=== PATIENT | female | born 1965 | race Caucasian/White ===

== ENCOUNTER 2020-03-18 07:00 | Day surgery (SDC) | payer OTHER ==
[~2020-03-18 07:00] MED LIST: Lidocaine 1%/Sod Bicarbonate in NS 8.4% 1 ML Syringe IDERM PRN; Sodium Chloride 0.9% 10 ML Syringe FLUSH PRN
[2020-03-18] MEDS ORDERED: Sodium Chloride 0.9% 50 ML SDV ONE (07:07)
[2020-03-18] MEDS ORDERED: Lidocaine 1% with EPINEPHrine 1:100,000 20 ML MDV ONE (07:07)
[2020-03-18] MEDS ORDERED: Bupivacaine 0.5% 30 ML SDV ONE (07:07)
[2020-03-18] MEDS ORDERED: HYDROmorphone 0.5 MG/0.5 ML Syringe ONE (07:15)
[2020-03-18] MEDS ORDERED: Lactated Ringers 1,000 ML ONE (07:15)
[2020-03-18] MEDS ORDERED: Rocuronium 50 MG/5 ML Vial ONE (07:15)
[2020-03-18] MEDS ORDERED: Ondansetron 4 MG/2 ML SDV ONE (07:15)
[2020-03-18] MEDS ORDERED: Propofol 200 MG/20 ML SDV ONE (07:15)
[2020-03-18] MEDS ORDERED: Midazolam 1 MG/ML 2 ML SDV ONE (07:15)
[2020-03-18] MEDS ORDERED: Dexamethasone 4 MG/ML 5 ML MDV ONE (07:16)
[2020-03-18] MEDS ORDERED: fentaNYL 250 MCG/5 ML SDV ONE (07:16)
[2020-03-18] MEDS ORDERED: Lidocaine 1% 4 ML ONE (07:16)
[2020-03-18] MEDS: Lactated Ringers 1,000 ML IV SCH ×2 (07:25→15:10)
--- NOTE | 2020-03-18 07:33 | PCM.PREANE ---
Preanesthetic Assessment - Anesthesia/Transfusion/Family Hx Anesthesia History: Prior Anesthesia Without Reaction Family History of Anesthesia Reaction: No Transfusion History: No Prior Transfusion(s) Intubation History: Unknown - Review of Systems General: No Symptoms Pulmonary: No Symptoms Cardiovascular: No Symptoms Gastrointestinal: No Symptoms Neurological: No Symptoms Other: Reports: None - Physical Assessment NPO Status Date: 03/17/20 NPO Status Time: 21:00 ASA Class: 1 Mental Status: Alert & Oriented x3 Airway Class: Mallampati = 2 Dentition: Reports: Normal Dentition Thyro-Mental Finger Breadths: 3 Mouth Opening Finger Breadths: 3 ROM/Head Extension: Full Lungs: Clear to Auscultation, Normal Respiratory Effort Cardiovascular: Regular Rate, Regular Rhythm - Lab Values: Laboratory Last Values WBC 4.57 K/mm3 (3.98-10.04) 03/17/20 07:43 RBC 4.92 M/mm3 (3.98-5.22) 03/17/20 07:43 Hgb 14.9 gm/dl (11.2-15.7) 03/17/20 07:43 Hct 46.1 % (34.1-44.9) H 03/17/20 07:43 MCV 93.7 fl (79.4-94.8) 03/17/20 07:43 MCH 30.3 pg (25.6-32.2) 03/17/20 07:43 MCHC 32.3 g/dl (32.2-35.5) 03/17/20 07:43 RDW Std Deviation 43.1 fL (36.4-46.3) 03/17/20 07:43 Plt Count 293 K/mm3 (182-369) 03/17/20 07:43 MPV 10.7 fl (9.4-12.3) 03/17/20 07:43 Neut % (Auto) 56.5 % (34.0-71.1) 03/17/20 07:43 Lymph % (Auto) 28.4 % (19.3-51.7) 03/17/20 07:43 Citrus % (Auto) 12.5 % (4.7-12.5) 03/17/20 07:43 Eos % (Auto) 2.0 (0.7-5.8) 03/17/20 07:43 Baso % (Auto) 0.4 % (0.1-1.2) 03/17/20 07:43 Neut # (Auto) 2.58 K/mm3 (1.56-6.13) 03/17/20 07:43 Lymph # (Auto) 1.30 K/mm3 (1.18-3.74) 03/17/20 07:43 Citrus # (Auto) 0.57 K/mm3 (0.24-0.36) H 03/17/20 07:43 Eos # (Auto) 0.09 K/mm3 (0.04-0.36) 03/17/20 07:43 Baso # (Auto) 0.02 K/mm3 (0.01-0.08) 03/17/20 07:43 Creatinine 0.8 mg/dL (0.55-1.02) 03/17/20 07:43 Est Cr Clr Drug Dosing TNP 03/17/20 07:43 Estimated GFR (MDRD) > 60 mL/min (>60) 03/17/20 07:43 Urine Color Light yellow (Yellow) 03/17/20 07:43 Urine Appearance Clear (Clear) 03/17/20 07:43 Urine pH 7.0 (5.0-8.0) 03/17/20 07:43 Ur Specific [place] 1.015 (1.005-1.030) 03/17/20 07:43 Urine Protein Negative (Negative) 03/17/20 07:43 Urine Glucose (UA) Negative (Negative) 03/17/20 07:43 Urine Ketones Negative (Negative) 03/17/20 07:43 Urine Occult Blood Negative (Negative) 03/17/20 07:43 Urine Nitrite Negative (Negative) 03/17/20 07:43 Urine Bilirubin Negative (Negative) 03/17/20 07:43 Urine Urobilinogen 0.2 (0.2-1.0) 03/17/20 07:43 Ur Leukocyte Esterase Negative (Negative) 03/17/20 07:43 Urine RBC Not seen /hpf (0-5) 03/17/20 07:43 Urine WBC 0-5 /hpf (0-5) 03/17/20 07:43 Ur Squamous Epith Cells 0-5 /hpf (0-5) 03/17/20 07:43 Urine Bacteria Rare /hpf (FEW) 03/17/20 07:43 Urine Mucus Not seen /hpf (FEW) 03/17/20 07:43 SARS-CoV-2 (PCR) Not detected (NOT DETECT) 03/15/20 09:30 Blood Type B POSITIVE 03/17/20 07:43 Gel Antibody Screen Negative 03/17/20 07:43 - Allergies Allergies/Adverse Reactions: Allergies Allergy/AdvReac Type Severity Reaction Status Date / Time No Known Allergies Allergy Verified 03/17/20 14:39 - Blood Blood Available: No Product(s) Available: None - Anesthesia Plan Pre-Op Medication Ordered: None - Acknowledgements Anesthesia Type Planned: General Anesthesia Pt an Appropriate Candidate for the Planned Anesthesia: Yes Alternatives and Risks of Anesthesia Discussed w Pt/Guardian: Yes Pt/Guardian Understands and Agrees with Anesthesia Plan: Yes PreAnesthesia Questionnaire HEENT History: Reports: None Cardiovascular History: Respiratory History: Reports: Other (See Below) Other Respiratory History: dypsnea Gastrointestinal History: Reports: None Genitourinary History: Reports: Other (See Below) Other Genitourinary History: HPV 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 (See Below) Other OB/BYN History: cryosurgery, CINI, postmenopausal bleeding, endometrial polyp, abnormal colposcopy, , thicken endometrium Musculoskeletal History: Reports: None Neurological History: Reports: None Psychiatric History: Reports: None Endocrine/Metabolic History: Reports: None Hematologic History: Reports: None Immunologic History: Reports: None Oncologic (Cancer) History: Reports: None Dermatologic History: Reports: None - Infectious Disease History Infectious Disease History: Reports: None - Past Surgical History Head Surgeries/Procedures: Reports: None HEENT Surgical History: Reports: None Cardiovascular Surgical History: Reports: Varicose Respiratory Surgical History: Reports: None GI Surgical History: Reports: Colonoscopy Female Surgical History: Reports: Section Male Surgical History: Reports: None Endocrine Surgical History: Reports: None Neurological Surgical History: Reports: None Musculoskeletal Surgical History: Reports: Other (See Below) Other Musculoskeletal Surgeries/Procedures:: foot surgery Oncologic Surgical History: Reports: None Dermatological Surgical History: Reports: None - SUBSTANCE USE Smoking Status *Q: Never Smoker Recreational Drug Use History: No - HOME MEDS Home Medications: Home Meds . [No Known Home Meds] 01/05/19 [History] - CURRENT (IN HOUSE) MEDS Current Meds: Current Medications Lactated Ringer's (Ringers, Lactated) 1,000 mls @ 125 mls/hr IV ASDIRECTED SYL Stop: 03/18/20 23:00 Lidocaine/Sodium Bicarbonate (Buffered Lidocaine 1% In Ns 8.4%) 0.25 ml IDERM ONETIME PRN PRN Reason: Prior to IV Start Stop: 03/18/20 18:00 Sodium Chloride (Saline Flush) 10 ml FLUSH ASDIRECTED PRN PRN Reason: Keep Vein Open Stop: 03/18/20 18:00 Discontinued Medications Bupivacaine HCl (Marcaine 0.5%) Confirm Administered Dose 30 ml .ROUTE .STK-MED ONE Stop: 03/18/20 07:08 Dexamethasone (Dexamethasone) Confirm Administered Dose 20 mg .ROUTE .STK-MED ONE Stop: 03/18/20 07:17 Fentanyl (Sublimaze) Confirm Administered Dose 250 mcg .ROUTE .STK-MED ONE Stop: 03/18/20 07:17 Hydromorphone HCl (Dilaudid) Confirm Administered Dose 0.5 mg .ROUTE .STK-MED ONE Stop: 03/18/20 07:16 Lactated Ringer's (Ringers, Lactated) Confirm Administered Dose 1,000 mls @ as directed .ROUTE .STK-MED ONE Stop: 03/18/20 07:16 Lidocaine HCl (Xylocaine-Mpf 1%) Confirm Administered Dose 4 mls @ as directed .ROUTE .STK-MED ONE Stop: 03/18/20 07:17 Lidocaine/Epinephrine (Xylocaine 1% With Epinephrine 1:100,000) Confirm Administered Dose 20 ml .ROUTE .STK-MED ONE Stop: 03/18/20 07:08 Midazolam HCl (Versed 1 Mg/Ml) Confirm Administered Dose 2 mg .ROUTE .STK-MED ONE Stop: 03/18/20 07:16 Ondansetron HCl (Zofran) Confirm Administered Dose 4 mg .ROUTE .STK-MED ONE Stop: 03/18/20 07:16 Propofol (Diprivan 20 Ml) Confirm Administered Dose 200 mg .ROUTE .STK-MED ONE Stop: 03/18/20 07:16 Rocuronium [place] (Zemuron) Confirm Administered Dose 50 mg .ROUTE .STK-MED ONE Stop: 03/18/20 07:16 Sodium Chloride (Normal Saline) Confirm Administered Dose 50 ml .ROUTE .STK-MED ONE Stop: 03/18/20 07:08
[2020-03-18] MEDS ORDERED: Ketorolac 30 MG/ML SDV ONE (08:18)
--- NOTE | 2020-03-18 09:23 | PCM.POSTAN ---
POST ANESTHESIA ASSESSMENT - MENTAL STATUS Mental Status: Alert, Oriented - VITAL SIGNS Vital Signs: Last Vital Signs Temp 36.2 C 03/18/20 07:10 Pulse 70 03/18/20 07:10 Resp 16 03/18/20 07:10 BP 133/76 03/18/20 07:10 Pulse Ox 98 03/18/20 07:10 - RESPIRATORY Respiratory Status: Respiratory Rate WNL, Airway Patent, O2 Saturation Stable, Supplemental Oxygen - CARDIOVASCULAR CV Status: Pulse Rate WNL, Blood Pressure Stable - GASTROINTESTINAL GI Status: No Symptoms - PAIN Pain Score: 0 - POST OP HYDRATION Hydration Status: Adequate & Stable
[2020-03-18] MEDS ORDERED: Acetaminophen/oxyCODONE 325-5 MG Tab PO PRN (09:24)
[2020-03-18] MEDS ORDERED: diphenhydrAMINE 50 MG/ML SDV IVPUSH PRN (09:24)
[2020-03-18] MEDS ORDERED: Ondansetron 4 MG/2 ML SDV IVPUSH PRN ×2 (09:24)
[2020-03-18] MEDS ORDERED: fentaNYL 100 MCG/2 ML SDV IVPUSH PRN (09:24)
--- NOTE | 2020-03-18 09:31 | PCM.OPNOTE ---
- General Post-Op/Procedure Note Date of Surgery/Procedure: 03/18/20 Operative Procedure(s): Laparoscopic-assisted total vaginal hysterectomy with bilateral salpingo-oophorectomy. Findings: 1. Uterus tubes and ovary grossly looked within normal limits. Appendix appeared flaccid and noninflamed. The gallbladder was distended and noninflamed. Liver edges were normal. Anterior and posterior cul-de-sacs were without pathology. Patient has a grade 2 cystocele and grade 1-2 rectocele. She had a grade 1 uterine descensus. Pre Op Diagnosis: 1. Postmenopausal uterine bleeding. 2. Thickened endometrium. 3. CARYN-1 Post-Op Diagnosis: Same Anesthesia Technique: General ET Tube Other Anesthesia Type: Marcaine 0.5%15 cc totallocal, lidocaine quarter [id number] cc total Primary Surgeon: Lukasz Jimenes Secondary Surgeon: Francis Olmedo Anesthesia Provider: Lorraine Crouch Reason Material Handler Was Necessary: Assistance, retraction, patient safety, quality of care. Pathology: Uterus, tubes and ovaries sent as 1 specimen. Fluid Replacement, Intraop: 1,500 Output, Urine Amount: 300 EBL in mLs: 100 Drain/Tube Comments:: Indwelling bladder catheter, removed at the end of the procedure Complications: None Condition: Good Free Text/Narrative:: Surgery duration: 40 minutes The patient was taken to the operating room placed in supine position on the operating table. She received 2 g of Ancef preoperatively for infection prophylaxis. She had signed consent previously. After adequate anesthesia patient was placed in a dorsal lithotomy position. It should be noted she had sequential compression stockings in place for DVT prophylaxis. An indwelling bladder catheter was placed. This was done after adequate prepping and draping. The patient was placed in supine position and 3 laparoscopic port sites were developed. Marcaine 0.5% approximately 3-5 mL was injected at each site. Verres needle was placed and pneumoperitoneum was achieved with 3 L of CO2. Infraumbilical and 2 lateral port sites were developed. Under laparoscopic guidance the upper portion of the hysterectomy was performed. The right infundibulopelvic ligament was elevated and crossclamped using the wizboo computerized cautery device. Both ovaries were removed per patient desire. The round ligament was taken down to the broad ligament. At this time attention was turned to the left side and the left infundibulopelvic ligament and the triple ligament were then taken down in a similar fashion. Broad ligament was taken down to the area of the uterine vasculature. Uterine vasculature was developed in the usual fashion using the cautery system. Both uterine arteries were identified and developed. Vaginal approach was then undertaken. The patient was placed in the dorsal lithotomy position and a weighted speculum was placed in the vagina. The cervix was injected with lidocaine quarter percent with epinephrine 20 mL total. A full circumference incision was made through the epithelium around the cervix. Posterior cul-de-sac was entered without problems. The left uterosacral ligament and then the right uterosacral were taken down using the Enseal vessel closure system. The cardinal ligament and what remained of the uterine vascular vessels and cervical branches of the vessels were managed with the Enseal vessel closure system on each side. Anterior cul-de-sac was then entered and the remaining portion of broad ligament on the right side and a small portion of broad ligament remaining on the left side were then developed in the usual fashion. Uterus was then removed. At this point the uterus was completely removed and sent as specimen. The vaginal cuff was then run with a locked running suture of 0 Monocryl from the 2 o'clock position to the 10 o'clock position. The vagina was closed with a running locked suture of 0 Monocryl. Hemostasis was confirmed this time and no bleeding was noted. Laparoscopy was then performed to ensure hemostasis. Pneumoperitoneum was reestablished and the laparoscope was placed. The pelvis was found to be hemostatically intact. There was no evidence of any bowel adhesion to the vaginal cuff area noted. The sleeves were removed under direct visualization and the upper sleeve was removed after reversal of the pneumoperitoneum. Each of these sites were closed with a single interrupted suture of 3-0 Monocryl. They were further approximated with Dermabond skin glue. At this point the patient was awakened from general endotracheal anesthesia. The Valderrama catheter had been removed by this time. She is discharged from the operating room in good condition.
[2020-03-18] MEDS ORDERED: Ketorolac 30 MG/ML SDV IVPUSH SCH (15:00)
[2020-03-18] MEDS ORDERED: Ibuprofen 600 MG Tab PO PRN (21:00)
--- NOTE | 2020-03-21 07:31 | PCM48HPAN ---
Post Anesthesia Note - EVALUATION WITHIN 48HRS OF ANESTHETIC Vital Signs in Normal Range: Yes Patient Participated in Evaluation: Yes Respiratory Function Stable: Yes Airway Patent: Yes Cardiovascular Function Stable: Yes Hydration Status Stable: Yes Pain Control Satisfactory: Yes Nausea and Vomiting Control Satisfactory: Yes Mental Status Recovered: Yes Vital Signs: Last Vital Signs Temp 36.4 C 03/18/20 14:10 Pulse 70 03/18/20 14:10 Resp 16 03/18/20 14:10 BP 125/57 L 03/18/20 14:10 Pulse Ox 96 03/18/20 14:10
== END 2020-03-18 14:25 | disposition home or self-care (01) ==
LOC: JD.SDS 07:00
PROVIDERS: ATTEND Obstetrics & Gynecology
DX: N80.0 Endometriosis of uterus (principal); N83.8 Other noninflammatory disorders of ovary, fallopian tube and broad ligament; N83.292 Other ovarian cyst, left side; N83.291 Other ovarian cyst, right side; N81.2 Incomplete uterovaginal prolapse; Z98.890 Other specified postprocedural states; Z01.812 Encounter for preprocedural laboratory examination; Z20.828 Contact with and (suspected) exposure to other viral communicable diseases
CPT/HCPCS: 36415; 58552; 81001; 82565; 85025; 86850; 86900; 86901; 87635; J1100; J1170; J1885; J2001; J2250; J2370; J2405; J2704; J2710; J3010; J3490; J7120; U0002